=== PATIENT | male | born 2000 | race African-American/Black ===

== ENCOUNTER 2020-08-08 23:17 | Emergency (ER) | payer OTHER ==
[~2020-08-08] VITALS: Ht 72 cm; Wt 86.0 kg
[2020-08-08 23:42] LABS: BASOPHILS % (AUTO) 0 % (0-10); EOSINOPHILS # (AUTO) 0.1 10^3/uL (0.0-0.3); EOSINOPHILS % (AUTO) 1 % (0-10); HEMATOCRIT 45 % (40-54); LYMPHOCYTES # (AUTO) 2.2 X 10^3 (1.0-4.0); LYMPHOCYTES % (AUTO) 20 % (12-44); MEAN CORPUSCULAR HEMOGLOBIN 31 PG (25-34); MEAN CORPUSCULAR HGB CONC 36 G/DL (32-36); MEAN CORPUSCULAR VOLUME 86 FL (80-99); MEAN PLATELET VOLUME 10.4 FL (7.4-10.4); MONOCYTES % (AUTO) 9 % (0-12); NEUTROPHILS # (AUTO) 7.5 X 10^3 (1.8-7.8); NEUTROPHILS % (AUTO) 69 % (42-75); PLATELET COUNT 181 10^3/uL (130-400); WHITE BLOOD COUNT 10.9 10^3/uL (4.3-11.0)
[2020-08-08 23:49] LABS: ALBUMIN 4.9 GM/DL (3.2-4.5)
[2020-08-08 23:50] LABS: CHLORIDE 104 MMOL/L (98-107); POTASSIUM 4.1 MMOL/L (3.6-5.0); SODIUM 137 MMOL/L (135-145)
[2020-08-08 23:51] LABS: AMYLASE 74 U/L (25-125); CALCIUM 9.5 MG/DL (8.5-10.1)
[2020-08-08 23:52] LABS: GLUCOSE 87 MG/DL (70-105); TOTAL PROTEIN 8.1 GM/DL (6.4-8.2)
[2020-08-08 23:53] LABS: CARBON DIOXIDE 22 MMOL/L (21-32)
[2020-08-08 23:54] LABS: BILIRUBIN,TOTAL 0.7 MG/DL (0.1-1.0)
[2020-08-08 23:55] LABS: CLARITY,URINE SL CLOUDY; COLOR,URINE ORANGE; GLUCOSE, URINE (UA) NEGATIVE (NEGATIVE); KETONES,URINE NEGATIVE (NEGATIVE); LEUKOCYTE ESTERASE ,URINE NEGATIVE (NEGATIVE); NITRITE,URINE NEGATIVE (NEGATIVE); PROTEIN,URINE 1+ (NEGATIVE)
[2020-08-08 23:55] LABS: ALKALINE PHOSPHATASE 63 U/L (40-136)
[2020-08-08 23:56] LABS: CREATININE SERUM 1.01 MG/DL (0.60-1.30); GFR ESTIMATED > 60
[2020-08-08 23:57] LABS: BUN/CREATININE RATIO 12
[2020-08-08 23:58] LABS: ALANINE AMINOTRANSFERASE 12 U/L (0-55)
[2020-08-08 23:59] LABS: MAGNESIUM 1.9 MG/DL (1.6-2.4)
[2020-08-09] MEDS ORDERED: KETOROLAC 30 MG/ML VIAL IVP ONE
[2020-08-09 00:01] LABS: CREATINE KINASE 218 U/L (30-200); LIPASE 41 U/L (8-78)
[2020-08-09 00:04] LABS: INR 1.1 (0.8-1.4); PROTHROMBIN TIME PATIENT 14.2 SEC (12.2-14.7)
[2020-08-09 00:08] LABS: CREATINE KINASE MB 0.4 NG/ML (<6.6)
[2020-08-09 00:11] LABS: AMPHETAMINE SCREEN, URINE NEGATIVE (NEGATIVE); BARBITURATE SCREEN URINE NEGATIVE (NEGATIVE); BENZODIAZEPINES SCREEN URINE NEGATIVE (NEGATIVE); BILIRUBIN,URINE 1+ (NEGATIVE); CANNABINOID SCREEN, URINE POSITIVE (NEGATIVE); COCAINE SCREEN URINE NEGATIVE (NEGATIVE); METHADONE STAT NEGATIVE (NEGATIVE); METHAMPHETAMINE SCREEN URINE S NEGATIVE (NEGATIVE); OPIATE SCREEN URINE NEGATIVE (NEGATIVE); OXYCODONE STAT NEGATIVE (NEGATIVE); PROPOXYPHENE STAT NEGATIVE (NEGATIVE); TRICYCLIC ANTIDEPRESSANTS SCRE NEGATIVE (NEGATIVE)
[2020-08-09 00:12] LABS: BACTERIA,URINE NEGATIVE /HPF; SQUAMOUS EPITHELIAL CELL,UR 0-2 /HPF
[2020-08-09] MEDS ORDERED: CYCL10TA9 PO (00:59)
[2020-08-09] MEDS ORDERED: MELO15TA14 PO (00:59)
--- NOTE | 2020-08-09 00:59 | ED Chest Pain ---
General Chief Complaint: Chest Pain Stated Complaint: CP Nursing Triage Note: PT ARRIVES TO ER WITH C/O STABBING CHEST PAIN SINCE 1500 TODAY. PAIN RADIATES TO BACK. PT STATES THAT HE HAS ASTHMA, HAS NOT BEEN AROUND ANYONE KNOWN TO BE SICK. PT DENIES FEVER/ COUGH Nursing Sepsis Screen: No Definite Risk Source: patient History of Present Illness Date Seen by Provider: Aug 08, 2020 Time Seen by Provider: 23:34 Initial Comments PT ARRIVES VIA POV FROM HOME STATES HE HAD BEEN STANDING AND WAS BENT OVER STUDYING FOR ABOUT AN HOUR, AND WHEN HE STOOD UP, HE HAD SUDDEN PAIN IN IS MID BACK NOW IS HAVING PAIN ALL AROUND LOWER CHEST THIS BEGAN AROUND 1500 TODAY STATES IT HURTS TO EXHALE NO ACTUAL SHORTNESS OF BREATH NO FEVER NO COUGH SLIGHT NAUSEA, NO VOMITING NO ABDOMINAL PAIN HAS NOT TAKEN ANYTHING FOR PAIN OR APPLIED HEAT/COLD TO THE AREA NO HISTORY OF SIMILAR NO KNOWN SICK CONTACTS OR KNOWN EXPOSURE TO COVID-19. PT HAS HISTORY OF ASTHMA, BUT HAS NOT HAD ANY PROBLEMS FOR A COUPLE OF MONTHS PT IS [employer] FROM [place] Allergies and Home Medications Allergies Coded Allergies: No Known Drug Allergies (Unverified , 08/08/20) Home Medications Cyclobenzaprine HCl 10 Mg Tablet, 10 MG PO Q8H PRN for SPASMS Prescribed by: SKIP CAMPOS on 08/09/2058 Meloxicam 15 Mg Tablet, 15 MG PO DAILY Prescribed by: SKIP CAMPOS on 08/09/2058 Patient Home Medication List Home Medication List Reviewed: Yes Review of Systems Review of Systems Constitutional: no symptoms reported; No chills, No diaphoresis, No dizziness, No fever, No malaise, No weakness EENTM: No Symptoms Reported; No Nose Congestion, No Throat Pain Respiratory: See HPI; Denies Cough, Denies Shortness of Air Cardiovascular: See HPI; Denies Edema, Denies Irregular Heart Rate, Denies Lightheadedness, Denies Palpitations, Denies Syncope Gastrointestinal: See HPI; Denies Abdominal Pain; Nausea; Denies Vomiting Genitourinary: No Symptoms Reported Musculoskeletal: see HPI, back pain Skin: no symptoms reported Psychiatric/Neurological: No Symptoms Reported; Denies Headache, Denies Numbness, Denies Paresthesia, Denies Weakness Endocrine: No Symptoms Reported Hematologic/Lymphatic: No Symptoms Reported Past Ramkzrr-Eesyoh-Puihuy Hx Past Med/Social Hx: Reviewed and Corrections made Patient Social History Alcohol Use: Rarely Uses Recreational Drug Use: Yes (THC) Drug of Choice: MARIJ[place] 2nd Hand Smoke Exposure: No Recent Foreign Travel: No Contact w/Someone Who Travel: No Recent Infectious Disease Expo: No Physical Abuse: No Sexual Abuse: No Mistreated: No Fear: No Immunizations Up To Date Tetanus Booster (TDap): Less than 5yrs Past Medical History Surgeries: Yes (VARICOCOELE SURGERY) Respiratory: Yes Asthma Cardiac: No Neurological: No Reproductive Disorders: Yes (VARICOCOELE REPAIR) Genitourinary: Yes (VARICOCOELE REPAIR) Gastrointestinal: No Musculoskeletal: No Endocrine: No HEENT: No Cancer: No Psychosocial: No Integumentary: No Blood Disorders: No Physical Exam Vital Signs Vital Signs - First Documented 08/08/20 23:20 Temp 36.8 Pulse 93 Resp 16 B/P (MAP) 153/101 (118) Pulse Ox 100 O2 Delivery Room Air Capillary Refill : Less Than 3 Seconds Height, Weight, BMI Height: '" Weight: lbs. oz. kg; 165.00 BMI Method: General Appearance: No Apparent Distress, Thin, Other (WALKS UPRIGHT AND MOVES WITHOUT DIFFICULTY) HEENT: PERRL/EOMI, Normal ENT Inspection Neck: Normal Inspection Respiratory: Normal Breath Sounds, No Accessory Muscle Use, No Respiratory Distress, Other (DIFFUSE BILATERAL LOWER CHEST/RIB TENDERNESS--ANTERIOR/L ATERAL/POSTERIOR) Cardiovascular: Regular Rate, Rhythm, No Edema, No JVD, No Murmur, Normal Peripheral Pulses Gastrointestinal: Normal Bowel Sounds, No Organomegaly, No Pulsatile Mass, Non Tender Extremity: Normal Capillary Refill, Normal Inspection, Normal Range of Motion, Non Tender, No Calf Tenderness, No Pedal Edema Neurologic/Psychiatric: Alert, Oriented x3, No Motor/Sensory Deficits, Normal Mood/Affect, sterile products processor II-XII Norm as Tested Skin: Normal Color (PT IS BLACK), Warm/Dry; No Rash Progress/Results/Core Measures Results/Orders Lab Results Laboratory Tests Test 08/08/20 23:33 08/08/20 23:40 08/08/20 23:45 Range/Units White Blood Count 10.9 4.3-11.0 10^3/uL Red Blood Count 5.25 4.35-5.85 10^6/uL Hemoglobin 16.0 13.3-17.7 G/DL Hematocrit 45 40-54 % Mean Corpuscular Volume 86 80-99 FL Mean Corpuscular Hemoglobin 31 25-34 PG Mean Corpuscular Hemoglobin Concent 36 32-36 G/DL Red Cell Distribution Width 13.0 10.0-14.5 % Platelet Count 181 130-400 10^3/uL Mean Platelet Volume 10.4 7.4-10.4 FL Neutrophils (%) (Auto) 69 42-75 % Lymphocytes (%) (Auto) 20 12-44 % Monocytes (%) (Auto) 9 0-12 % Eosinophils (%) (Auto) 1 0-10 % Basophils (%) (Auto) 0 0-10 % Neutrophils # (Auto) 7.5 1.8-7.8 X 10^3 Lymphocytes # (Auto) 2.2 1.0-4.0 X 10^3 Monocytes # (Auto) 1.0 0.0-1.0 X 10^3 Eosinophils # (Auto) 0.1 0.0-0.3 10^3/uL Basophils # (Auto) 0.0 0.0-0.1 10^3/uL Erythrocyte Sedimentation Rate 1 0-15 MM/HR Sodium Level 137 135-145 MMOL/L Potassium Level 4.1 3.6-5.0 MMOL/L Chloride Level 104 98-107 MMOL/L Carbon Dioxide Level 22 21-32 MMOL/L Anion Gap 11 5-14 MMOL/L Blood Urea Nitrogen 12 7-18 MG/DL Creatinine 1.01 0.60-1.30 MG/DL Estimat Glomerular Filtration Rate > 60 BUN/Creatinine Ratio 12 Glucose Level 87 70-105 MG/DL Calcium Level 9.5 8.5-10.1 MG/DL Corrected Calcium 8.5-10.1 MG/DL Magnesium Level 1.9 1.6-2.4 MG/DL Total Bilirubin 0.7 0.1-1.0 MG/DL Aspartate Amino Transf (AST/SGOT) 17 5-34 U/L Alanine Aminotransferase (ALT/SGPT) 12 0-55 U/L Alkaline Phosphatase 63 40-136 U/L Total Creatine Kinase 218 H 30-200 U/L Creatine Kinase MB 0.4 <6.6 NG/ML Myoglobin 34.6 10.0-92.0 NG/ML Troponin I < 0.028 <0.028 NG/ML B-Type Natriuretic Peptide < 10.0 <100.0 PG/ML Total Protein 8.1 6.4-8.2 GM/DL Albumin 4.9 H 3.2-4.5 GM/DL Amylase Level 74 25-125 U/L Lipase 41 8-78 U/L Serum Alcohol < 10 <10 MG/DL Prothrombin Time 14.2 12.2-14.7 SEC INR Comment 1.1 0.8-1.4 Activated Partial Thromboplast Time 31 24-35 SEC Urine Color ORANGE Urine Clarity SL CLOUDY Urine pH 6.0 5-9 Urine Specific [place] >=1.030 1.016-1.022 Urine Protein 1+ H NEGATIVE Urine Glucose (UA) NEGATIVE NEGATIVE Urine Ketones NEGATIVE NEGATIVE Urine Nitrite NEGATIVE NEGATIVE Urine Bilirubin 1+ H NEGATIVE Urine Urobilinogen 1.0 < = 1.0 MG/DL Urine Leukocyte Esterase NEGATIVE NEGATIVE Urine RBC (Auto) NEGATIVE NEGATIVE Urine RBC NONE /HPF Urine WBC NONE /HPF Urine Squamous Epithelial Cells 0-2 /HPF Urine Crystals NONE /LPF Urine Bacteria NEGATIVE /HPF Urine Casts PRESENT /LPF Urine Hyaline Casts 2-5 H /LPF Urine Mucus LARGE H /LPF Urine Culture Indicated NO Urine Opiates Screen NEGATIVE NEGATIVE Urine Oxycodone Screen NEGATIVE NEGATIVE Urine Methadone Screen NEGATIVE NEGATIVE Urine Propoxyphene Screen NEGATIVE NEGATIVE Urine Barbiturates Screen NEGATIVE NEGATIVE Ur Tricyclic Antidepressants Screen NEGATIVE NEGATIVE Urine Phencyclidine Screen NEGATIVE NEGATIVE Urine Amphetamines Screen NEGATIVE NEGATIVE Urine Methamphetamines Screen NEGATIVE NEGATIVE Urine Benzodiazepines Screen NEGATIVE NEGATIVE Urine Cocaine Screen NEGATIVE NEGATIVE Urine Cannabinoids Screen POSITIVE H NEGATIVE My Orders Orders - SKIP CAMPOS DO Cbc With Automated Diff (08/08/20 23:33) Magnesium (08/08/20 23:33) Chest 1 View, Ap/Pa Only (08/08/20 23:33) Ekg Tracing (08/08/20 23:33) Comprehensive Metabolic Panel (08/08/20 23:33) Myoglobin Serum (08/08/20 23:33) Protime With Inr (08/08/20 23:33) Partial Thromboplastin Time (08/08/20 23:33) Monitor-Rhythm Ecg Trace Only (08/08/20 23:33) Ed Iv/Invasive Line Start (08/08/20 23:33) Creatine Kinase (08/08/20 23:33) Creatine Kinase Mb (08/08/20 23:33) Lipase (08/08/20 23:33) Amylase (08/08/20 23:33) BNP (08/08/20 23:33) Troponin I (08/08/20 23:33) Alcohol (08/08/20 23:33) Erythrocyte Sedimentation Rate (08/08/20 23:33) Drug Screen Stat (Urine) (08/08/20 23:33) Ua Culture If Indicated (08/08/20 23:33) Ketorolac Injection (Toradol Injection) (08/09/20 00:00) Medications Given in ED Vital Signs/I&O 08/08/20 08/08/20 08/09/20 23:20 23:43 01:22 Temp 36.8 36.8 Pulse 93 94 Resp 16 16 B/P (MAP) 153/101 (118) 126/81 (118) Pulse Ox 100 100 O2 Delivery Room Air Room Air Room Air Blood Pressure Mean: 118 Progress Progress Note : Progress Note GIVEN TORADOL WITH COMPLETE RELIEF OF PAIN Initial ECG Impression Date: Aug 08, 2020 Initial ECG Impression Time: 23:24 Initial ECG Rate: 49 Initial ECG Rhythm: Normal Sinus Diagnostic Imaging Comments CXR--NO ACUTE PROCESS, PENDING RADIOLOGIST REVIEW Reviewed: Reviewed by Me Departure Impression Primary Impression: Chest wall pain Disposition: HOME, SELF-CARE Condition: Improved Departure-Patient Inst. Referrals: NO,LOCAL PHYSICIAN (PCP) Primary Care Physician FANY JULIAN MD Patient Instructions: Chest Pain That Is Not Caused by the Heart (DC), Costochondritis (DC) Add. Discharge Instructions: MOIST HEAT TO AREA AT 20 MINUTE INTERVALS FOLLOW UP WITH [facility] IN 2-3 DAYS IF NO BETTER, RETURN TO ER IF SYMPTOMS WORSEN All discharge instructions reviewed with patient and/or family. Voiced understanding. Scripts Cyclobenzaprine HCl (Cyclobenzaprine HCl) 10 Mg Tablet 10 MG PO Q8H PRN for SPASMS, #10 TAB 0 Refills Prov: SIKP CAMPOS DO 08/09/20 Meloxicam (Mobic) 15 Mg Tablet 15 MG PO DAILY, #10 TAB Prov: KRISTA CAMPOSA K DO 08/09/20 SKIP CAMPOS DO Aug 09, 2020 00:59
[2020-08-09 01:22] VITALS: BP 126/81
--- NOTE | 2020-08-09 05:25 | Diagnostic Imaging Report ---
INDICATION: Chest pain COMPARISON: None FINDINGS: Single frontal view of the chest demonstrates normal heart size and pulmonary vascularity. The lungs are well aerated and clear. No large pleural effusion or pneumothorax is seen. The visualized osseous structures show no acute abnormalities. IMPRESSION: 1. No acute cardiopulmonary process. Dictated by: Dictated on workstation # [id number]
== END 2020-08-09 01:22 | disposition home or self-care (01) ==
LOC: ER 23:19
DX: R07.89 Other chest pain (principal)
CPT/HCPCS: 71045; 80053; 80306; 81000; 82150; 82550; 82553; 83690; 83735; 83874; 83880; 84484; 85025; 85610; 85652; 85730; 93005; 93041; 99284; G0480; 36415; 80320